=== PATIENT | female | born 1945 | race Caucasian/White ===

== ENCOUNTER 2016-12-04 08:23 | Inpatient (IN) | payer MEDICARE, OTHER ==
[~2016-12-04 08:23] MED LIST: ACETAMINOPHEN PO; AMOX TR-K CLV 81 TAB PO; ASPIR-LOW81 MG PO; BACTRIM DS TAB1 EACH PO; CALTRATE-600 W1 EACH PO; CENTRUM CARDIO1 TAB PO; FISH OIL 1,0001 CAP PO; IBU-200200 MG PO; LAMISIL250 MG PO; NORCO 5/3251 TA2 PO; PRINIVIL10 MG PO
[2016-12-04 09:14] LABS: BASO % 0.6 % (0-2); BASO ABSOLUTE COUNT 0.1 tho/cmm (0.0-0.2); EOS % 1.1 % (0-7); EOSINOPHIL ABSOLUTE COUNT 0.1 tho/cmm (0.0-0.7); HCT-HEMATOCRIT 34.9 % (34.0-49.0); HGB-HEMOGLOBIN 11.5 gm/dl (12.0-15.5); IMMATURE GRANULOCYTES ABSOLUTE 0.03 tho/cmm (0-0.03); IMMATURE GRANULOCYTES PERCENT 0.4 % (0-0.3); LYMPH % 8.9 % (20-45); LYMPH ABSOLUTE COUNT 0.7 tho/cmm (0.8-4.5); MCH (MEAN CORPUSCULAR HGB) 28.8 pg (28.0-32.0); MCV (MEAN CELL VOLUME) 87.5 fl (82.0-96.0); MEAN PLATELET VOLUME 8.9 cmc (9.4-12.4); MONO % 6.9 % (0-12); MONOCYTE ABSOLUTE COUNT 0.6 tho/cmm (0.0-1.2); NEUTROPHIL ABSOLUTE COUNT 6.8 tho/cmm (1.6-8.0); NEUTROPHIL-AUTOMATED 6.8 tho/cmm (1.6-8.0); NEUTROPHILS % 82.1 % (40-80); PLATELET COUNT 298 tho/cmm (150-450); RED BLOOD COUNT 3.99 mil/cmm (4.00-5.20); RED CELL DISTRIBUTION WIDTH 13.5 % (12.4-16.4); WHITE BLOOD COUNT 8.2 tho/cmm (4.0-10.0)
[2016-12-04 09:29] LABS: ANION GAP 12 mmol/L (0-20); BLOOD UREA NITROGEN 19 mg/dl (6-24); CALCIUM 9.1 mg/dl (8.5-10.5); CARBON DIOXIDE-VENOUS 28 mmol/L (22-32); CHLORIDE 109 mmol/l (96-110); CREATININE 0.94 mg/dl (0.50-1.10); GLUCOSE 152 mg/dL (70-110); POTASSIUM 4.5 mmol/L (3.7-5.1); SODIUM 144 mmol/L (135-145); eGFR VALUE FOR BLACK 70 mL/Min
--- NOTE | 2016-12-04 20:14 | NUR ---
VIRTUAL CARE NOTE: THIS RN SPOKE WITH PT. THROUGH CAMERA SYSTEM, BUT DID NOT TURN CAMERAS TO PT. OR THIS RN DUE TO PT. IN THE MIDDLE OF BOWEL PREP. ASKED IF HAD IN QUESTIONS OR NEEDED ANYTHING AT THIS TIME. DENIES NEED, INSTRUCTED TO CALL FOR FURTHER QUESTIONS. STATES VERBAL AGREEMENT.
[2016-12-05 03:44] LABS: BASO % 0.8 % (0-2); BASO ABSOLUTE COUNT 0.1 tho/cmm (0.0-0.2); EOS % 5.1 % (0-7); EOSINOPHIL ABSOLUTE COUNT 0.3 tho/cmm (0.0-0.7); HCT-HEMATOCRIT 31.1 % (34.0-49.0); HGB-HEMOGLOBIN 9.9 gm/dl (12.0-15.5); IMMATURE GRANULOCYTES ABSOLUTE 0.03 tho/cmm (0-0.03); IMMATURE GRANULOCYTES PERCENT 0.5 % (0-0.3); LYMPH % 21.5 % (20-45); LYMPH ABSOLUTE COUNT 1.4 tho/cmm (0.8-4.5); MCH (MEAN CORPUSCULAR HGB) 28.1 pg (28.0-32.0); MCHC MEAN CORPUSCULAR HGB CONC 31.8 % (32.0-36.0); MCV (MEAN CELL VOLUME) 88.4 fl (82.0-96.0); MEAN PLATELET VOLUME 8.6 cmc (9.4-12.4); MONO % 7.5 % (0-12); MONOCYTE ABSOLUTE COUNT 0.5 tho/cmm (0.0-1.2); NEUTROPHIL ABSOLUTE COUNT 4.2 tho/cmm (1.6-8.0); NEUTROPHIL-AUTOMATED 4.2 tho/cmm (1.6-8.0); NEUTROPHILS % 64.6 % (40-80); PLATELET COUNT 268 tho/cmm (150-450); RED BLOOD COUNT 3.52 mil/cmm (4.00-5.20); RED CELL DISTRIBUTION WIDTH 13.9 % (12.4-16.4); WHITE BLOOD COUNT 6.4 tho/cmm (4.0-10.0)
[2016-12-05 04:04] LABS: ANION GAP 12 mmol/L (0-20); BLOOD UREA NITROGEN 13 mg/dl (6-24); CALCIUM 8.1 mg/dl (8.5-10.5); CARBON DIOXIDE-VENOUS 23 mmol/L (22-32); CHLORIDE 115 mmol/l (96-110); CREATININE 0.66 mg/dl (0.50-1.10); GLUCOSE 109 mg/dL (70-110); SODIUM 147 mmol/L (135-145); eGFR VALUE FOR BLACK >90 mL/Min
[2016-12-05 04:16] LABS: POTASSIUM 3.4 mmol/L (3.7-5.1)
--- NOTE | 2016-12-05 17:05 | NUR ---
VIRTUAL CARE NOTE: PT RESTING ON BED READY FOR DISCHARGE INSTRUCTONS. PT HAD COLONSCOPY DONE THIS AM, TOLERATES FULL LIQUID AT LUNCH, DENIES ANY ISSUES WITH PO INTAKE. PT WANTS TO GO HOME AND DOES NOT WANT TO WAIT FOR DINNER COMES. DISCHARGE INSTRUCTIONS GIVEN TO PT, PT DENIES QUESTIONS. INFORMED FLOOR NURSE DC TEACHING DONE.
== END 2016-12-05 17:35 | DRG 378 ==
LOC: EDMED 08:23 → EMR2 11:00 → 5WD 11:50
PROVIDERS: Emergency Medicine; ADMIT Family Medicine
PROC: 0DJD8ZZ Inspection of Lower Intestinal Tract, Via Natural or Artificial Opening Endoscopic (ICD-10-PCS; principal; 2016-12-05)
DX: K57.91 Diverticulosis of intestine, part unspecified, without perforation or abscess with bleeding (principal); D62 Acute posthemorrhagic anemia; I10 Essential (primary) hypertension; Z85.038 Personal history of other malignant neoplasm of large intestine; K64.8 Other hemorrhoids; Z85.118 Personal history of other malignant neoplasm of bronchus and lung; Z87.891 Personal history of nicotine dependence; Z79.82 Long term (current) use of aspirin; M19.90 Unspecified osteoarthritis, unspecified site
CPT/HCPCS: G0500; J2250; J3010; J7030